=== PATIENT | female | born 1960 | race Caucasian/White ===

== ENCOUNTER 2019-04-24 14:23 | Inpatient (IN) | payer OTHER ==
[2019-04-24 15:39] LABS: #Basophils 0.1 thou/uL (0.0-0.2); #Eosinphils 0.2 thou/uL (0.0-0.7); #Lymphocytes 2.9 thou/uL (1.20-3.40); #Monocytes 0.6 thou/uL (0.11-0.59); #Neutrophils 7.1 thou/uL (1.40-6.50); %Basophils 0.7 % (0.0-1.0); %Eosinophils 1.7 % (0.0-10.0); %Lymphocytes 26.9 % (21.0-51.0); %Monocytes 5.2 % (0.0-10.0); %Neutrophils 65.4 % (42.0-75.0); Hemoglobin 15.8 g/dL (12.0-16.0); Mean Corpuscular HGB CONC 33.8 g/dL (32.0-36.0); Mean Corpuscular Hemoglobin 31.7 pg (27.0-31.0); Mean Corpuscular Volume 93.6 fL (78.0-98.0); Mean Platelet Volume 7.4 fL (7.4-10.4); Platelet Count 251 thou/uL (130-400); RBC Distribution Width 11.2 % (11.5-14.5); Red Blood Cell (RBC) Count 4.99 mill/uL (4.20-5.40); White Blood Cell (WBC) Count 10.9 thou/uL (4.8-10.8)
[2019-04-24 16:01] LABS: ALT (SGPT) 23 U/L (8-55); AST (SGOT) 15 U/L (5-34); Albumin 4.4 g/dL (3.5-5.0); Alkaline Phosphatase 81 U/L (40-150); Anion Gap 11 mmol/L (10-20); BUN (Urea Nitrogen) 15 mg/dL (9.8-20.1); Bilirubin, Total 0.4 mg/dL (0.2-1.2); Calc. Creatinine Clearance 0 mL/min (70-130); Calcium 9.4 mg/dL (7.8-10.44); Carbon Dioxide 27 mmol/L (22-29); Chloride 101 mmol/L (98-107); Estimated GFR-MDRD 56; Globulin 2.6 g/dL (2.4-3.5); Glucose 305 mg/dL (70-105); Potassium 4.2 mmol/L (3.5-5.1); Sodium 135 mmol/L (136-145)
[2019-04-24] MEDS ORDERED: ISOVUE-370 76%-LOCM 1 ML ONE (16:17)
[2019-04-24] MEDS ORDERED: diphenhydrAMINE 50 MG/ML VIAL ONE (18:40)
[2019-04-24] MEDS ORDERED: methylPREDNISolone Sod Succ/PF 125 MG/2 ML VIAL ONE (18:40)
[2019-04-24] MEDS ORDERED: Metoclopramide HCl 10 MG/2 ML VIAL ONE (18:40)
--- NOTE | 2019-04-24 19:57 | CT ---
CTA Angio Head W WO Con CT brain without contrast History: Reason For Study Comparison: None. Findings: Noncontrast evaluation of the brain demonstrates hypodensity right SAP HANA DEVELOPER territory hypodensit y appears subacute-chronic. No acute hemorrhage. Calvarium is intact. Large left maxillary sinus mucosal retention cyst. The intradural right vertebral artery is dominant. Basilar artery is patent. Left P1 segment is atret ic. Very subtle focal occlusion right P2 segments due to thrombus for length of 3 mm. The left middle cerebral artery is patent as well as the anterior cerebral arteries. Focal low-grade narrowing right M1 segment, 20-30%. Impression: 1. Late subacute-chronic right SAP HANA DEVELOPER territory infarction. 2. Focal 3 mm thrombosis right P2 segment with adequate peripheral vascular flow. 3. Low-grade 20-30% narrowing right M1 segment. Code CR: Dr. Yanelis tabares
[2019-04-24] MEDS ORDERED: Aspirin Chewable 81 MG TAB ONE (19:59)
[2019-04-24 22:49] VITALS: BMI 32.1
[2019-04-24] MEDS ORDERED: Morphine 2 MG/ML SYRINGE IVP SCH (23:15)
[2019-04-25] MEDS: Morphine 2 MG/ML SYRINGE SLOW IVP PRN ×2 (03:40→08:22)
[2019-04-25] MEDS ORDERED: Dextrose 50% Abboject 50 ML SYRINGE IVP PRN (06:06)
[2019-04-25] MEDS ORDERED: Dextrose 5% in Water 1,000 ML IV PRN ×2 (06:06→09:19)
[2019-04-25] MEDS: Insulin Regular 300 UNITS/3 ML VIAL SC PRN ×2 (06:37→12:22)
[2019-04-25] MEDS ORDERED: Ondansetron ODT 4 MG TAB PO PRN (09:19)
[2019-04-25] MEDS ORDERED: Acetaminophen 325 MG TAB PO PRN (09:19)
[2019-04-25] MEDS ORDERED: Dextrose 50% Abboject 50 ML SYRINGE SLOW IVP PRN (09:19)
[2019-04-25] MEDS ORDERED: Ketorolac Tromethamine 30 MG/ML VIAL IVP SCH (09:30)
[2019-04-25] MEDS ORDERED: Aspirin 325 mg Enteric Coated Tablet PO SCH (10:00)
--- NOTE | 2019-04-25 10:41 | HP ---
PRIMARY CARE PHYSICIAN: out of town physician. CHIEF COMPLAINT: Persistent right-sided headache and visual changes. HISTORY OF PRESENT ILLNESS: A 58-year-old female with known history of diabetes, who came in due to persistent headache associated with visual changes. The patient reportedly developed severe right frontotemporal headache about 2 weeks ago, for which she has been taking NSAIDs for relief. A week after onset of headaches, the patient had an episode of acute onset of left-sided numbness, which soon resolved but has happened intermittently for 3 more times. About the same time, also the patient started having visual changes, which she describes as seeing kaleidoscopes with some flashes of light. The patient had contacted PCP's office, but could not see the PCP a day prior to presentation. She was initially treated for possible migraine and was asked to take her antihypertensives. Due to persistent of symptoms, she was finally seen by PCP on April 23 and prescription of was given while arrangement for MRI was made for April 26. However, due to persistent of symptoms with worsening visual changes, the patient presented to the emergency room, where she was noticed to have a right posterior circulation artery infarct. The patient continues to have constricted visual field as well as flashes of light and some visual hallucinations as well as left facial numbness. There was no associated limb weakness or facial droop. The patient also denied chest pain, palpitations, nausea, vomiting, abdominal pain, dysuria, hematuria, or leg swelling. Dull light temporal headache persists, which she rates as 8/10. PAST MEDICAL HISTORY: 1. Type 2 diabetes. 2. Hypothyroidism. 3. Anxiety. 4. Attention deficit hyperactivity disorder. 5. Questionable hypertension. 6. Obesity. PAST SURGICAL HISTORY: 1. Cholecystectomy. 2. Sinus surgery. 3. Tubal ligation. FAMILY HISTORY: Significant for hypertension and hyperlipidemia in mother, and COPD, coronary artery disease, and peripheral artery disease in father. SOCIAL HISTORY: The patient lives with spouse and family. Occasionally takes alcohol, but denied smoking or recreational drug use. The patient wants to be full code, and spouse is the surrogate decision maker. 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 Works with [employer]. ALLERGIES: NO KNOWN DRUG ALLERGIES REPORTED. HOME MEDICATIONS: The patient is on the following, but the doses and frequency could not be ascertained at this time. 1. Metformin. 2. Levothyroxine. 3. Citalopram. 4. Adderall. 5. Insulin 75/25, 52 units in the morning and 52 units in the evening. 6. An unknown antihypertensive. 7. NSAIDs. REVIEW OF SYSTEMS: A 12-point review of system performed was negative other than pertinent positives and negatives included in the history of present illness. PHYSICAL EXAMINATION: VITAL SIGNS: Temperature 98.2, pulse 90, respiratory rate 18, SpO2 of 94 on room air, blood pressure is 166/89. GENERAL: Middle-aged female, in [id number] painful distress. Afebrile. Anicteric. Acyanotic. HEENT: Normocephalic and atraumatic. Pupils are equal and reacting to light. Oral mucosa is moist. NECK: Supple, nontender, with full range of motion. No masses or lymphadenopathy appreciated. CARDIOVASCULAR: Regular rhythm and rate with normal heart sounds 1 and 2. 3/6 systolic murmur is noted. RESPIRATORY: Good air entry bilaterally with no obvious crackle or rhonchi or use of accessory muscles. GI: Obese, soft, nontender, nondistended with normal bowel sounds. EXTREMITIES: Grossly normal looking, atraumatic with no edema, erythema, or cyanosis. Distal pulses are palpable. NEUROLOGIC: Conscious and alert, oriented x3, with appropriate mental status. Face is symmetrical with no facial droop. Cranial nerves 2 through 12 are grossly intact except visual field changes. Left homonymous hemianopia noted. Power is 5/5 in all extremities. Sensation is grossly symmetrical in both lower limbs and upper limbs as well as trunk. Sensation however is mildly decreased on the left side of face. Tone and reflexes are normal and symmetrical. PSYCHIATRIC: Normal affect with normal behavior and good insight. DIAGNOSTIC DATA: CBC showed WBC count of 10.9, hemoglobin of 15.8, MCV of 93.6, platelets of 251. BMP showed sodium of 135, potassium 4.2, chloride 101, CO2 of 27, anion gap 11, BUN 15, creatinine 1.01, glucose 305, calcium 9.4, total bilirubin 0.4, AST 15, ALT 23, alkaline phosphatase 81, total protein 7.0, albumin 4.4, globulin 2.6. Initial troponin is 0.012. EKG showed normal sinus rhythm with rate of 75. No obvious ischemic changes were noted. CT scan of the brain showed subacute to chronic right FLATBED STITCHER territory infarction. CT angio head with and without contrast showed focal 3 mm thrombosis of the right P2 segment with adequate peripheral vascular flow as well as low grade 20% to 30% narrowing of right M1 segment. Incidentally, large left maxillary sinus mucosal retention cyst was noted. ASSESSMENT: 1. Subacute right FLATBED STITCHER territory infarct. 2. Left homonymous hemianopia. 3. Moderate to severe headache. 4. Heart murmur. 5. Large left maxillary sinus mucosal retention cyst. 6. Hypertension, most likely reactive, related to acute cerebrovascular infarct. 7. Type 2 diabetes mellitus with hyperglycemia. 8. Hypothyroidism. 9. Obesity. PLAN: 1. We will start analgesics with Ketorolac to get adequate headache control. 2. We will allow permissive hypertension. 3. We will start aspirin and statin. 4. DVT prophylaxis with Lovenox will be commenced. 5. Insulin therapy to get adequate blood sugar control will be commenced as well. 6. We will get carotid Doppler as well as echocardiogram of the heart. 7. We will consult Neurology. 8. PT, OT, and Speech consults have been requested. 9. We will continue neuro checks. We will get lipid panel in the morning as well as repeat BMP, given NSAID use. Code status is full code. The patient's spouse is the surrogate decision maker. It is anticipated that the patient will be in hospital for more than two midnights. Job ID: [id number]
[2019-04-25] MEDS: HYDROcodone/Acetaminophen 5/325 mg Tablet PO PRN ×4 (12:22→22:28)
--- NOTE | 2019-04-25 13:17 | CON ---
DATE OF CONSULTATION: 04/25/2019 This consult is performed via telemedicine, registered nurse accompanying the physician is Elda. CHIEF COMPLAINT: Headache. HISTORY OF PRESENT ILLNESS: The patient reports she has had a headache about 2 weeks ago and she has been waiting at home before she sought further medical attention. She developed left face, arm, and leg numbness last Friday, and it is still numb. She thought it was a migraine. She took Excedrin Migraine, which did not help. She then took Advil. On Friday, she received rizatriptan prescribed by her family doctor and he told her that if her symptoms do not resolve to come back to the hospital. The patient developed vision problems. She feels her vision is like a kaleidoscope, particularly on the left side. She worsened since and then, her vision symptoms changed. She is having strobing and flashes in her vision on the left side. She has problems walking. PREVIOUS MEDICAL HISTORY: She had one other episode of migraine 30 years ago, which lasted for 2 days after childbirth and this was following an epidural steroid injection for procedure for childbirth. Her previous medical history is also significant for diabetes and she is monitoring her blood sugars regularly and she has hypothyroidism, anxiety, attention deficit disorder, and obesity. PAST SURGICAL HISTORY: Cholecystectomy, sinus surgery, and tubal ligation. FAMILY HISTORY: Her mother has hypercholesterolemia and hypertension. She is 78. Father at 79 from COPD. Her son is 30, he is healthy and no strokes in the family. SOCIAL HISTORY: She lives with her family. She drinks alcohol maybe once a week and she does not smoke. 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 She does have a high stress job, but she is generally not anxious or stressed in life. MEDICATIONS: At home; 1. Metformin. 2. Levothyroxine. 3. Citalopram. 4. Adderall. 5. Insulin. 6. NSAID. ALLERGIES: NO KNOWN DRUG ALLERGIES. REVIEW OF SYSTEMS: PULMONARY: Negative for shortness of breath and cough. GI: Negative for diarrhea, vomiting, and nausea. CARDIAC: Negative for chest pain. NEUROLOGIC: Positive for headache, numbness, and vision symptoms. ENDOCRINE: Positive for thyroid dysfunction. DERMATOLOGIC: Negative for any rash. OPHTHALMOLOGIC: Positive for vision symptoms. LABORATORY WORKUP: White count 10.9, hemoglobin 15.8, hematocrit 46.7, and platelets 251. Chemistry; sodium 135, potassium 4.2, chloride 101, bicarb 27, BUN 15, creatinine 1.01, and glucose 305. Trend in her glucose has been hyperglycemic throughout this visit and her CT of the head and CT of the [place] with angiogram was reported she has late subacute chronic right RESPIRATORY MANAGER territory infarction and focal 3 mm thrombosis in the right P2 segment and low-grade 20% to 30% narrowing of the right M1 segment. PHYSICAL EXAMINATION: VITAL SIGNS: Blood pressure was 166/89, pulse 90, temperature 98.2, and O2 saturations 94. GENERAL APPEARANCE: Well-built, well-nourished lady. CHEST: Clear vesicular breathing. CARDIOVASCULAR: S1 and S2 heard. No murmurs. ABDOMEN: Soft. NEUROLOGIC: Higher intellectual functions, normal orientation to time, place, and person. Cranial nerves 2 through 12, normal visual howard on the right side. She had deficit in the left inferior quadrant in the left eye only in the two segments and normal sensation of face bilaterally. No facial asymmetry. Normal hearing bilaterally. Tongue midline. No atrophy noted. Motor, bulk normal. Tone normal. Strength 5/5 in both upper and lower extremities. Muscle groups tested are iliopsoas, hamstrings, quadriceps, ankle dorsiflexion, plantar flexion, deltoid, biceps, triceps, wrist extension and flexion, finger extension and flexion bilaterally. Deep tendon reflexes 2+ throughout. Sensory normal to touch bilaterally except for left arm and leg and cerebellar, normal [id number] and [id number]-[id number]. IMPRESSION: The patient is a 58-year-old lady with history of sudden onset of headache and visual changes for the last 2 weeks, and she stated at home thinking this is a migraine and has continued to have symptoms. She describes her left eye vision as a kaleidoscope and she is also having some mild deficits with her balance. Her current examination shows visual field cut in the lower quadrant of the left eye in both temporal and nasal sections on confrontation method. Rest of the neurological exam is normal except for numbness. Localization for her stroke would be in the left and right RESPIRATORY MANAGER and the expected evolution of her symptoms of stroke, evolution of her ischemia. RECOMMENDATIONS: I will request an MRI of the brain to establish the diagnosis and if you need any further help, please contact Dr. Vasques, I am off call from tomorrow. Job ID: [id number]
--- NOTE | 2019-04-25 13:49 | MRI ---
EXAM: MRI of the brain without contrast HISTORY: Headache and blurry vision COMPARISON: None TECHNIQUE: Multiplanar multisequence MR images were obtained of the brain without IV contrast. FINDINGS: There is a wedge-shaped area of high FLAIR signal and restricted diffusion in the right parieto-occip ital region. Other scattered foci of high FLAIR signal in the subcortical and periventricular white matter are likely secondary to small vessel ischemic disease. No midline shift or downward herniation. No hydronephrosis. No extra-axial fluid collection or intracranial hemorrhage. The expected flow voids are present. Corpus callosum, pituitary, and craniocervical junction are within normal limits. The calvarium and overlying soft tissues are unremarkable. A mucus retention cyst is seen in the left maxillary sinus. The other paranasal sinuses and mastoid a ir cells are well aerated. IMPRESSION: Acute right posterior cerebral artery infarction
[2019-04-25] MEDS: Ondansetron PF 4 MG/2 ML Vial IVP PRN ×2 (14:45→21:47)
[2019-04-25] MEDS ORDERED: Ketorolac Tromethamine 30 MG/ML VIAL IVP PRN (15:00)
--- NOTE | 2019-04-25 15:05 | ULT ---
BILATERAL CAROTID DUPLEX ULTRASOUND WITH SPECTRAL ANALYSIS AND COLOR FLOW EVALUATION: HISTORY: CVA. FINDINGS: Farmer scale, color flow, Doppler evaluation, and spectral analysis of the bilateral carotid arteries i s performed with 2D imaging. There is a suggestion of mild atherosclerotic plaque involving the left carotid bulb. There is less than 50% maximal stenosis in the bilateral internal carotid arteries based on peak syst olic velocities and ICA/CCA ratios. The peak systolic velocity in the right ICA is 103.1 cm/s with a n ICA/CCA ratio of 0.86. Peak systolic velocity in the left ICA Is 97 cm/s with an ICA/CCA ratio of 0.78. There is an elevated peak systolic velocity in the left internal carotid artery suggesting stenosis. Antegrade flow is demonstrated. Antegrade flow is demonstrated in the vertebral arteries bilaterally. IMPRESSION: No hemodynamically significant stenosis in the bilateral internal carotid arteries. POS: [facility]
[2019-04-25] MEDS: HumaLOG 300 UNITS/3 ML VIAL SC PRN ×2 (18:08→21:25)
[2019-04-25] MEDS ORDERED: Famotidine/PF 20 mg/2ml Vial SLOW IVP SCH (21:00)
[2019-04-25] MEDS: Famotidine 20 MG TAB PO SCH (21:23)
[2019-04-25] MEDS: Atorvastatin Calcium 40 MG TAB PO SCH (21:23)
[2019-04-26] MEDS: HYDROcodone/Acetaminophen 5/325 mg Tablet PO PRN ×6 (02:34→23:29)
[2019-04-26 05:34] LABS: #Basophils 0.1 thou/uL (0.0-0.2); #Eosinphils 0.1 thou/uL (0.0-0.7); #Lymphocytes 3.8 thou/uL (1.20-3.40); #Monocytes 0.5 thou/uL (0.11-0.59); #Neutrophils 7.1 thou/uL (1.40-6.50); %Basophils 0.5 % (0.0-1.0); %Eosinophils 0.6 % (0.0-10.0); %Lymphocytes 32.9 % (21.0-51.0); %Monocytes 4.2 % (0.0-10.0); %Neutrophils 61.8 % (42.0-75.0); Hemoglobin 14.2 g/dL (12.0-16.0); Mean Corpuscular HGB CONC 32.9 g/dL (32.0-36.0); Mean Corpuscular Hemoglobin 30.6 pg (27.0-31.0); Mean Corpuscular Volume 92.9 fL (78.0-98.0); Mean Platelet Volume 7.6 fL (7.4-10.4); Platelet Count 230 thou/uL (130-400); RBC Distribution Width 11.4 % (11.5-14.5); Red Blood Cell (RBC) Count 4.65 mill/uL (4.20-5.40); White Blood Cell (WBC) Count 11.5 thou/uL (4.8-10.8)
[2019-04-26 05:40] LABS: Hemoglobin A1c 10.8 % (4.0-6.0)
[2019-04-26 05:57] LABS: Anion Gap 12 mmol/L (10-20); BUN (Urea Nitrogen) 17 mg/dL (9.8-20.1); Calc. Creatinine Clearance 121 mL/min (70-130); Calcium 9.1 mg/dL (7.8-10.44); Carbon Dioxide 26 mmol/L (22-29); Cardiac Risk 3.4 (Less than 4.5); Chloride 101 mmol/L (98-107); Cholesterol 127 mg/dl (< 200 Desired); Estimated GFR-MDRD 73; Glucose 259 mg/dL (70-105); HDL Cholesterol 37 mg/dL (>60 Neg Risk); LDL Cholesterol, Calculated 64 mg/dL; Potassium 4.3 mmol/L (3.5-5.1); Sodium 135 mmol/L (136-145); Triglycerides 130 mg/dL (Less than 150)
[2019-04-26] MEDS: HumaLOG 300 UNITS/3 ML VIAL SC PRN ×3 (06:38→17:20)
[2019-04-26] MEDS ORDERED: Dextrose 5% in Water 1,000 ML IV PRN (07:38)
[2019-04-26] MEDS ORDERED: Dextrose 50% Abboject 50 ML SYRINGE SLOW IVP PRN (07:38)
[2019-04-26] MEDS ORDERED: HumaLOG 300 UNITS/3 ML VIAL SC PRN (07:38)
[2019-04-26] MEDS ORDERED: Insulin Glargine 30 UNITS in Pre-Filled Syringe 1 EACH SC SCH (09:00)
[2019-04-26] MEDS ORDERED: Insulin Glargine 20 UNITS in Pre-Filled Syringe 1 EACH SC SCH (09:00)
[2019-04-26] MEDS: Losartan 25 MG TAB PO SCH (09:28)
[2019-04-26] MEDS: Aspirin 325 mg Enteric Coated Tablet PO SCH (09:28)
[2019-04-26] MEDS: Enoxaparin Sodium 40 MG/0.4 ML SYRINGE SC SCH (09:28)
[2019-04-26] MEDS: Famotidine 20 MG TAB PO SCH ×2 (09:28→20:31)
--- NOTE | 2019-04-26 14:01 | PDOC.HOSPP ---
- Subjective Encounter Date: 04/26/19 Encounter Time: 10:58 Subjective: 58 y/o female admitted with acute visual changes and headache. CT and MRI showed acute posterior cerebral atery are infarction. Headache hs improved but visual defect persist. No new problem. - Objective Vital Signs & Weight: Vital Signs (12 hours) Temp Pulse Pulse Pulse Resp BP BP 04/26/19 11:58 97.4 F L 73 16 04/26/19 09:48 61 72 146/78 H 184/81 H 04/26/19 09:46 61 72 146/78 H 184/81 H 04/26/19 09:25 97.6 F 64 16 04/26/19 08:00 04/26/19 04:00 97.9 F 92 16 BP Pulse Ox 04/26/19 11:58 128/65 93 L 04/26/19 09:48 04/26/19 09:46 04/26/19 09:25 137/71 98 04/26/19 08:00 98 04/26/19 04:00 146/76 H 98 Weight Weight 220 lb 12.8 oz I&O: 04/25/19 04/26/19 04/27/19 06:59 06:59 06:59 Intake Total 980 Balance 980 Result Diagrams: 04/26/19 05:21 04/26/19 05:21 Additional Labs: Accuchecks 04/26/19 04/26/19 04/25/19 10:58 06:16 20:50 POC Glucose 266 H 279 H 344 H 04/25/19 17:11 POC Glucose 366 H ROS - Medication Medications: Active Medications Generic Name Dose Route Start Last Admin Trade Name Freq PRN Reason Stop Dose Admin Hydrocodone Bitart/Acetaminophen 1 tab 04/25/19 09:19 04/26/19 02:34 [place] 5/325 PO 1 tab Q4H PRN Administration Moderate Pain (4-6) Hydrocodone Bitart/Acetaminophen 2 tab 04/25/19 14:27 04/26/19 10:58 [place] 5/325 PO 2 tab Q4H PRN Administration Severe Pain (7-10) Aspirin 325 mg 04/26/19 09:00 04/26/19 09:28 Ecotrin PO 325 mg DAILY DELTA Administration Atorvastatin Calcium 40 mg 04/25/19 21:00 04/25/19 21:23 Lipitor PO 40 mg HS DELTA Administration Enoxaparin Sodium 40 mg 04/26/19 09:00 04/26/19 09:28 Lovenox SC 40 mg 0900 DELTA Administration Famotidine 20 mg 04/25/19 21:00 04/26/19 09:28 Pepcid PO 20 mg BID DELTA Administration Insulin Glargine 30 units/ 0.3 mls @ 0.3 mls/hr 04/26/19 09:00 04/26/19 09:27 Miscellaneous Medication SC 0.3 mls QAM DELTA Administration Losartan Potassium 50 mg 04/26/19 09:00 04/26/19 09:28 Cozaar PO 50 mg DAILY DELTA Administration Ondansetron HCl 4 mg 04/25/19 09:19 04/25/19 21:47 Zofran IVP 4 mg Q6H PRN Administration Nausea/Vomiting Sodium Chloride 10 ml 04/25/19 09:19 04/25/19 21:23 Flush - Normal Saline IVF 10 ml PRN PRN Administration Saline Flush - Exam awake alert Eye: PERRL, anicteric sclera Eye - other findings: left homonymous inferior quadrantopia. 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 Continue sliding scale insulin. Will restart metformin tomorrow Continue ASA and statin. Awaitin Neurology re evaluattion. Continue PT/OT. Consult case ,mgt for rehab placement in line with PT recommendadtion.
[2019-04-26] MEDS ORDERED: Insulin Glargine 10 UNITS in Pre-Filled Syringe SC SCH (14:15)
[2019-04-26] MEDS: Atorvastatin Calcium 40 MG TAB PO SCH (20:31)
[2019-04-27] MEDS: HYDROcodone/Acetaminophen 5/325 mg Tablet PO PRN ×2 (03:34→07:48)
[2019-04-27] MEDS: HumaLOG 300 UNITS/3 ML VIAL SC PRN (07:10)
[2019-04-27 08:07] VITALS: BP 148/77; TEMP 97.8
[2019-04-27] MEDS ORDERED: Insulin Glargine 40 UNITS in Pre-Filled Syringe SC SCH (09:00)
[2019-04-27] MEDS ORDERED: Insulin Glargine 50 UNITS in Pre-Filled Syringe 1 EACH SC SCH (09:00)
[2019-04-27] MEDS: Enoxaparin Sodium 40 MG/0.4 ML SYRINGE SC SCH (09:35)
[2019-04-27] MEDS: Famotidine 20 MG TAB PO SCH (09:36)
[2019-04-27] MEDS: Aspirin 325 mg Enteric Coated Tablet PO SCH (09:36)
[2019-04-27] MEDS: Losartan 25 MG TAB PO SCH (09:37)
--- NOTE | 2019-04-27 18:30 | DIS ---
DATE OF ADMISSION: 04/24/2019 DATE OF DISCHARGE: 04/27/2019 PRIMARY CARE PHYSICIAN: Out of town physician. DISCHARGE DIAGNOSES: 1. Acute ischemic right posterior cerebral artery stroke. 2. Homonymous bilateral field defects of the left side. 3. Uncontrolled diabetes mellitus with hemoglobin A1c of 11.3. 4. Hypertension. 5. Dyslipidemia. 6. Gait instability. 7. Obesity. 8. Pseudohyponatremia due to hyperglycemia CONSULTS: Neurology. HOSPITAL COURSE: A 58-year-old female with known history of hypertension and diabetes, admitted with acute visual changes and persistent headache. CT scan of the brain performed in the emergency room showed acute posterior cerebral artery area infarct. This was further confirmed with MRI of the brain. Neurology consult was obtained and physical and occupational therapy as well as rehabilitation was recommended given gait instability. However, the patient declined acute rehab, preferring to go home. She however was able to ambulate, but due to visual field deficit she tends to stumble a little bit. She was also found to have uncontrolled diabetes with hemoglobin A1c of 10.8 hence insulin therapy was adjusted appropriately with improvement in diabetic control. PHYSICAL EXAMINATION: VITAL SIGNS: Temperature 97.8, pulse 57, respiratory rate 18, SpO2 of 99% on room air. Blood pressure is 148/77. GENERAL: Middle-aged female, in no obvious distress. Afebrile. Anicteric. Acyanotic. HEENT: Normocephalic, atraumatic. Pupils are reacting to light. CARDIOVASCULAR: Regular rhythm and rate with normal heart sounds one and two. Systolic murmur is noted. RESPIRATORY: Good air entry bilaterally with no obvious crackle or rhonchi or use of accessory muscles. GI: Obese, soft, nontender, nondistended with normal bowel sounds. EXTREMITIES: Grossly normal looking atraumatic with no edema or erythema. NEUROLOGIC: Cranial nerves 2 through 12 are grossly intact except visual field loss. The patient has left homonymous inferior quadrantanopia. Cranial nerve; power is 5/5 in all limbs. The patient is ambulant. DISCHARGE CONDITION: Stable. DISCHARGE DISPOSITION: Home. FOLLOWUP: 1. Follow up with PCP in 1 week. 2. Follow up with house superintendent of her choice in 1 to 2 weeks. 3. Follow up with outpatient PT and OT. DISCHARGE MEDICATIONS: 1. Citalopram 20 mg p.o. daily. 2. Losartan 100 mg p.o. daily. 3. Metformin 1000 mg p.o. b.i.d. 4. Acetaminophen 650 mg p.o. q.4 p.r.n. for pain. 5. Aspirin 325 mg p.o. daily. 6. Lipitor 40 mg p.o. daily at bedtime. 7. Insulin 50 units subcutaneously daily. 8. Insulin lispro 0 to 13 units subcutaneously with meal for hyperglycemia according to providing sliding scale. 9. Tramadol 50 to 100 mg p.o. q.6 p.r.n. for headache. TIME SPENT: This discharge took more than 35 minutes. Job ID: [id number] MTDD
--- NOTE | 2019-04-28 10:23 | PQF ---
[employer] Crystal Reports NATTY Andino CHRIS NICKERSON [id number] [id number] CLINICAL DOCUMENTATION CLARIFICATION FORM: POST DISCHARGE Addendum to original discharge summary date: ____ Late entry note date: __ DATE: 04/28/2019 ATTN: CHRIS NICKERSON Please exercise your independent, professional judgment in responding to the clarification form. Clinical indicators are provided on the bottom of this form for your review Please check appropriate box(s): [ ] Hyponatremia please specify etiology, if known [ ] Hyponatremia due to SIADH (Syndrome of Inappropriate Secretion of Antidiuretic Hormone) [ X ] Other diagnosis Pseudohyponatremia due to hyperglycemia [ ] Unable to determine CLINICAL INDICATORS - SIGNS / SYMPTOMS / LABS Headache with visual changes - Documented in H&P on 04/24/19 by CHRIS NICKERSON left side numbness - Documented in H&P on 04/24/19 by CHRIS NICKERSON Sodium of 135 - Documented in H&P on 04/24/19 by CHRIS NICKERSON RISK FACTORS DM - documented in Discharge summary on 04/27/19 by CHRIS NICKERSON Acute ischemic cerebral artery stroke - documented in Discharge summary on 04/27 by CHRIS NICKERSON TREATMENTS: Sodium Chloride 0.9% 10 ml IVF - Documented in Medication list (This form is maintained as a part of the permanent medical record) 2014 [employer]. All Rights Reserved [email or web address] [not provided] MTDD
--- NOTE | 2019-05-01 12:46 | EKG ---
Test Reason : Blood Pressure : / mmHG Vent. Rate : 075 BPM Atrial Rate : 075 BPM P-R Int : 190 ms QRS Dur : 092 ms QT Int : 422 ms P-R-T Axes : 065 013 068 degrees QTc Int : 471 ms Normal sinus rhythm Incomplete right bundle branch block Borderline ECG Confirmed by SAMI CLARK, YURI ([id number]), writer editor EZIO CARDOZO ([id number]) on 05/01/2019 12:45:57 PM Referred By: Confirmed By:YURI GALLARDO MD
== END 2019-04-27 10:55 | disposition home or self-care (01) | DRG 66 ==
LOC: ERS 14:23 → 2SE 20:15
PROVIDERS: ADMIT Hospitalist; ATTEND Hospitalist
DX: I63.531 Cerebral infarction due to unspecified occlusion or stenosis of right posterior cerebral artery (principal); E03.9 Hypothyroidism, unspecified; F41.9 Anxiety disorder, unspecified; I10 Essential (primary) hypertension; H53.462 Homonymous bilateral field defects, left side; E78.5 Hyperlipidemia, unspecified; E11.65 Type 2 diabetes mellitus with hyperglycemia; G43.909 Migraine, unspecified, not intractable, without status migrainosus; R26.81 Unsteadiness on feet; R20.0 Anesthesia of skin; E66.9 Obesity, unspecified; F90.9 Attention-deficit hyperactivity disorder, unspecified type; Z90.49 Acquired absence of other specified parts of digestive tract; Z98.51 Tubal ligation status; Z79.84 Long term (current) use of oral hypoglycemic drugs; Z79.4 Long term (current) use of insulin; Z68.32 Body mass index [BMI] 32.0-32.9, adult; Z79.899 Other long term (current) drug therapy
CPT/HCPCS: 36415; 36416; 70496; 70551; 80048; 80053; 80061; 83036; 84484; 85025; 93005; 93306; 93880; 96365; 96375; J1200; J1650; J1815; J1885; J2270; J2405; J2765; J2930; Q0162; Q9966

== ENCOUNTER 2020-08-08 14:58 | Inpatient (IN) | payer OTHER, SELFPAY ==
[~2020-08-08 14:58] MED LIST: Iopamidol-370 76% 500 ML 1 ML ONE; Magnevist 469MG/ML 20 ML VIAL ONE
[2020-08-08 15:44] LABS: #Basophils 0.1 thou/uL (0.0-0.2); #Eosinphils 0.1 thou/uL (0.0-0.7); #Lymphocytes 1.9 thou/uL (1.20-3.40); #Monocytes 0.5 thou/uL (0.11-0.59); #Neutrophils 7.5 thou/uL (1.40-6.50); %Basophils 0.8 % (0.0-1.0); %Eosinophils 1.4 % (0.0-10.0); %Monocytes 4.7 % (0.0-10.0); %Neutrophils 74.2 % (42.0-75.0); Hemoglobin 15.5 g/dL (12.0-16.0); Mean Corpuscular HGB CONC 34.9 g/dL (32.0-36.0); Mean Corpuscular Hemoglobin 32.4 pg (27.0-31.0); Mean Corpuscular Volume 92.7 fL (78.0-98.0); Platelet Count 234 thou/uL (130-400); RBC Distribution Width 11.6 % (11.5-14.5); Red Blood Cell (RBC) Count 4.79 mill/uL (4.20-5.40); White Blood Cell (WBC) Count 10.2 thou/uL (4.8-10.8)
[2020-08-08 15:50] LABS: PTT 26.8 sec (22.9-36.1); Prothrombin Time 12.8 sec (12.0-14.7)
[2020-08-08 16:09] LABS: ALT (SGPT) 30 U/L (8-55); AST (SGOT) 36 U/L (5-34); Albumin 4.3 g/dL (3.5-5.0); Alkaline Phosphatase 63 U/L (40-110); Anion Gap 14 mmol/L (10-20); BUN (Urea Nitrogen) 13 mg/dL (9.8-20.1); Bilirubin, Total 0.5 mg/dL (0.2-1.2); Calc. Creatinine Clearance 0 mL/min (70-130); Calcium 9.6 mg/dL (7.8-10.44); Carbon Dioxide 26 mmol/L (22-29); Chloride 101 mmol/L (98-107); Estimated GFR-MDRD 78; Globulin 2.9 g/dL (2.4-3.5); Glucose 285 mg/dL (70-105); Potassium 4.2 mmol/L (3.5-5.1); Protein, Total 7.2 g/dL (6.0-8.3); Sodium 137 mmol/L (136-145)
--- NOTE | 2020-08-08 16:16 | RAD ---
ONE VIEW CHEST: 08/08/20 HISTORY: Dizziness, headache, nausea. Altered mental status. COMPARISON: None. FINDINGS: Cardiac silhouette and pulmonary vasculature are within normal limits. Lungs are clear. Osseous struc tures have a normal appearance. IMPRESSION: No acute cardiopulmonary process. POS: [facility]
[2020-08-08] MEDS ORDERED: Aspirin Chewable 81 MG TAB ONE (16:44)
--- NOTE | 2020-08-08 17:14 | CT ---
CTA HEAD WITH AND WITHOUT CONTRAST CTA NECK WITH CONTRAST: 08/08/20 Axial tomograms obtained through the head pre and post IV contrast with post contrast images through the head and neck following angio protocol with multiplanar reconstructions and 3D postprocessing. INDICATION: Dizziness. History of prior CVA. CT HEAD WITHOUT CONTRAST: Encephalomalacia in the right occipital lobe consistent with previous right posterior cerebral artery distribution infarct which was described on CT 04/24/19 and MRI of brain 04/25/19. On today's noncontrast CT there is a focal area of low attenuation in the left centrum semiovale cons istent with a focal lacunar infarct in the deep white matter. Also focal low attenuation in the deep white matter adjacent the anterior horn on the right consistent with ischemic change. Low attenuation seen in the parasagittal region superiorly involving the superior frontal gyrus. This could represent subacute infarct in the right anterior cerebral artery distribution. Recommend MRI f or confirmation. No hemorrhage. IMPRESSION: 1. Low attenuation at the vertex of right frontal lobe parasagittal region concerning for infarct in the right anterior cerebral artery distribution possibly subacute. 2. Chronic appearing ischemic changes in the white matter near the right frontal horn and left centru m semiovale. 3. 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 CTA HEAD: The intracranial internal carotid arteries are patent. Cavernous ICAs are patent. Middle cerebral arteries are patent and symmetric. There is evidence of occlusion of the right anterior cerebral artery A2 segment. Basilar artery is patent. Posterior cerebral arteries are patent and symmetric. There is an atretic P 1 segment on the left which is stable. There is a communication on the left which is patent. IMPRESSION: Evidence of occlusion of the A2 segment of the right anterior cerebral artery. This is significant gi jase the probable acute/subacute right AC infarct. CTA NECK: Arch vessels unremarkable. Common carotid arteries unremarkable. Carotid bulbs and extracranial inter nal carotid arteries are patent and symmetric. Vertebral arteries are patent and symmetric. Left vertebral terminates in PICA. No soft tissue abnormality. IMPRESSION: Unremarkable CTA neck. Findings relayed to Dr. English. Code CR POS: [id number]
[2020-08-08] MEDS ORDERED: Senokot S 8.6-50 MG TAB PO PRN (17:18)
[2020-08-08] MEDS ORDERED: HumaLOG 300 UNITS/3 ML VIAL SC PRN (17:20)
[2020-08-08] MEDS ORDERED: Insulin Regular 300 UNITS/3 ML VIAL SC PRN (17:20)
[2020-08-08] MEDS ORDERED: Dextrose 50% Abboject 50 ML SYRINGE SLOW IVP PRN (17:20)
[2020-08-08] MEDS ORDERED: Dextrose 5% in Water 1,000 ML IV PRN (17:20)
[2020-08-08 17:52] LABS: Bilirubin Negative (Negative); Blood, Urine Negative (Negative); Clarity Clear (Clear); Glucose, Urine (Dipstick) >=1000 mg/dL (Negative); Ketone, Urine 10 mg/dL (Negative); Leukocyte Negative Leu/uL (Negative); Nitrite Negative (Negative); Protein, Urine (Dipstick) Negative (Neg-Trace); Urobilinogen Normal mg/dL (Less than 2)
--- NOTE | 2020-08-08 18:09 | MRI ---
MRI BRAIN WITH AND WITHOUT CONTRAST: DATE: 08/08/2020 HISTORY: 59-year-old female with acute CVA. Dizziness. Left-sided weakness. COMPARISON: 04/25/2019 TECHNIQUE: Multiplanar, multisequence MRI of the brain performed pre- and post-IV injection of gadolinium based contrast agent. FINDINGS: There is a new finding of multifocal patchy small T2 and FLAIR hyperintensities along a long strip of right paramedian upper and anterior frontal lobe parenchyma, including superior frontal gyrus. A small lesion involves the right paracentral lobule. All of these have restricted diffusion, represent ing acute or subacute infarctions in the right TAISHA territory. There is enhancement of small blood vessels associated with these infarctions. 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 There is mild hemosiderin staining indicating there was mild previous hemorrhagic conversion. There is laminar necrosis associated with this (T1 shortening). There is a small lacunar infarction involving the left chowdhury radiata and adjacent portion of left ce ntrum semiovale which occurred sometime after the previous MRI of 04/25/2019. No acute hemorrhage, mass effect, midline shift, obstructive hydrocephalus, or extra-axial fluid jaye ection. No abnormal intra-axial enhancement. IMPRESSION: 1) acute or subacute infarctions along long segment of right anterior cerebral artery territory. 2) moderately large old right occipital posterior cerebral artery territory infarction. 3) left cerebral deep white matter lacunar infarction which occurred sometime after the previous MRI of 04/25/2019. 4) no acute hemorrhage
[2020-08-08] MEDS ORDERED: Clopidogrel Bisulfate 300 MG TAB ONE (18:32)
[2020-08-08] MEDS ORDERED: Atorvastatin Calcium 40 MG TAB PO SCH (21:00)
[2020-08-08] MEDS: Acetaminophen 325 MG TAB PO PRN (21:16)
[2020-08-08] MEDS: Famotidine 20 MG TAB PO SCH (21:16)
[2020-08-08 22:15] VITALS: BMI 31.1
--- NOTE | 2020-08-09 00:45 | HP ---
PRIMARY CARE PHYSICIAN: Bull Woodard. CHIEF COMPLAINT: Dizziness with some nausea and ataxia. HISTORY OF PRESENT ILLNESS: Ms. Lewis is a 59-year-old female, who came to the emergency room today for evaluation of dizziness and ataxia of bilateral lower left leg weakness with some nausea. She was admitted last April 2019 for similar symptoms and at that time, she was diagnosed with an acute ischemic right posterior cerebral artery stroke. 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 She also had a MRI of the brain today while she was in the emergency room, which showed acute or subacute infarctions along the long segment of the right anterior cerebral artery, moderately large old right occipital posterior cerebral artery, left cerebral deep matter lacunar infarction, which occurred sometime after the previous MRI of 04/25/2019. No acute hemorrhage. The patient reports that after her last stroke in last April in 2018, she was worked up in [place], but is not really sure which hospital, so she is going to get that information. They worked her up for any cardiac causes of the previous stroke and she said that they did not find anything definitive. She does have a history of diabetes type 2, hypothyroidism, anxiety, ADHD, possible hypertension, and then the CVA in last April. She is going to be admitted to the stroke unit for further workup. Dr. Mccabe, a neurologist was consulted from the ER and she was taking an aspirin 325 daily and so he had the ER add Plavix. She had been also taking a statin, which we will continue. REVIEW OF SYSTEMS: She denies any fever or chills. She denies any changing issues with her vision. She said that she had some residual deficits from her stroke last April, but nothing new. She denies any chest pain or shortness of breath. She does have some mild nausea. Denied any vomiting, constipation, diarrhea. She reports that her bilateral lower legs were weak and she has fallen twice at home today. She reports that she has good diminished sensation on the left lower leg. All systems are reviewed and negative unless mentioned above or in HPI. PAST MEDICAL HISTORY: Please see HPI. SURGICAL HISTORY: Cholecystectomy, sinus surgery, tubal ligation. PSYCHIATRIC HISTORY: None. SOCIAL HISTORY: Denies any alcohol use. No drug use. No smoking history. Lives at home with her family. ALLERGIES: NONE. CURRENT MEDICATIONS: 1. NovoLog 70/30, 15 units b.i.d. 2. Aspirin 81 mg p.o. once a day. 3. Citalopram 20 mg p.o. once a day. 4. Metformin 1000 mg p.o. b.i.d. 5. Atorvastatin 40 mg p.o. once a day. 6. Losartan 100 mg p.o. once a day. 7. Levothyroxine 125 mcg p.o. daily. 8. Topiramate 50 mg p.o. b.i.d. p.r.n. PHYSICAL EXAMINATION: VITAL SIGNS: Blood pressure 160/97, pulse is 86, respiratory rate is 18, temperature is 98.1, pO2 sats are 96% on room air. CONSTITUTIONAL: She appears nontoxic. She is alert and oriented to person, place and time. HEENT: Head atraumatic and normocephalic. Eyes, eyelids are normal to inspection. Pupils are equally round and reactive to light. Extraocular muscles are intact. ENT, mouth exam is normal. Mucous membranes are moist. NECK: Normal range of motion. Trachea is midline. RESPIRATORY: Chest movement is symmetrical. Chest expansion is equal. CARDIOVASCULAR: Heart sounds are normal. Regular rate and rhythm. ABDOMEN: Nontender. Bowel sounds are heard. BACK: Normal range of motion. No CVA tenderness. UPPER EXTREMITIES: Normal range of motion. Motor strength is normal. Sensation is intact to lower extremity. Inspection is normal. Normal range of motion. She does have some left leg drift and decreased sensation. NEURO: She is oriented to person, place, and time. Speech is normal. She does have a left drift to the left leg with decreased sensation to the left leg. SKIN: Warm, dry, and normal in color. PSYCH: Oriented to person, place, and time. DIAGNOSTIC STUDIES: EKG in the emergency room shows beats per minute 78, normal sinus rhythm, ST segments and T-waves are normal. PLAN AND ASSESSMENT: 1. Cerebrovascular accident on the right anterior cerebral artery. The patient has had a CTA of the neck and head as well as an MRI of the brain while in the emergency room. We will do an echocardiogram. We will ask PT, OT, speech, and Neurology to be consulted. We will decrease her aspirin to 81 mg. We will add Plavix 75 mg p.o. daily. We will continue atorvastatin. We will add fasting lipids, TSH, and A1c in the a.m. Neuro checks q.4. The patient's symptoms had been going on for more than 24 hours and she was not a tPA candidate. 2. History diabetes type 2, before meals and at bedtime Accu-Cheks. We will restart her home medications. Add a sliding scale as needed for coverage. 3. History of hypertension. We will continue her home medications. 4. History of previous cerebrovascular accident. Please see #1. 5. History of hypothyroidism. We will check a TSH in the morning. Restart home medications. 6. Deep venous thrombosis and gastrointestinal prophylaxis started. 7. Case discussed with Dr. Urrutia, who agrees with plan. 8. Hospital course dependent on clinical findings. Job ID: [id number]
[2020-08-09] MEDS: Acetaminophen 325 MG TAB PO PRN (04:28)
[2020-08-09 05:53] LABS: #Eosinphils 0.2 thou/uL (0.0-0.7); #Lymphocytes 2.8 thou/uL (1.20-3.40); #Monocytes 0.6 thou/uL (0.11-0.59); #Neutrophils 3.7 thou/uL (1.40-6.50); %Basophils 0.6 % (0.0-1.0); %Eosinophils 3.2 % (0.0-10.0); %Lymphocytes 37.6 % (21.0-51.0); %Neutrophils 50.6 % (42.0-75.0); Hemoglobin 14.5 g/dL (12.0-16.0); Mean Corpuscular HGB CONC 33.7 g/dL (32.0-36.0); Mean Corpuscular Hemoglobin 31.7 pg (27.0-31.0); Mean Corpuscular Volume 93.9 fL (78.0-98.0); Mean Platelet Volume 7.3 fL (7.4-10.4); Platelet Count 220 thou/uL (130-400); RBC Distribution Width 11.7 % (11.5-14.5); Red Blood Cell (RBC) Count 4.58 mill/uL (4.20-5.40); White Blood Cell (WBC) Count 7.4 thou/uL (4.8-10.8)
[2020-08-09 05:59] LABS: Hemoglobin A1c 10.7 % (4.0-6.0)
[2020-08-09] MEDS ORDERED: Levothyroxine Sodium 125 MCG TAB PO SCH (06:00)
[2020-08-09 06:20] LABS: ALT (SGPT) 22 U/L (8-55); AST (SGOT) 22 U/L (5-34); Alkaline Phosphatase 62 U/L (40-110); Anion Gap 13 mmol/L (10-20); BUN (Urea Nitrogen) 13 mg/dL (9.8-20.1); Bilirubin, Total 0.5 mg/dL (0.2-1.2); Calc. Creatinine Clearance 136 mL/min (70-130); Calcium 9.1 mg/dL (7.8-10.44); Carbon Dioxide 27 mmol/L (22-29); Cardiac Risk 4.3 (Less than 4.5); Chloride 102 mmol/L (98-107); Cholesterol 159 mg/dl (< 200 Desired); Estimated GFR-MDRD 86; Globulin 2.5 g/dL (2.4-3.5); Glucose 177 mg/dL (70-105); HDL Cholesterol 37 mg/dL (>60 Neg Risk); LDL Cholesterol, Calculated 88 mg/dL; Potassium 3.8 mmol/L (3.5-5.1); Protein, Total 6.5 g/dL (6.0-8.3); Sodium 138 mmol/L (136-145); Triglycerides 170 mg/dL (Less than 150)
[2020-08-09] MEDS ORDERED: Aspirin 325 mg Enteric Coated Tablet PO SCH (09:00)
[2020-08-09] MEDS ORDERED: Clopidogrel Bisulfate 75 MG TAB PO SCH (09:00)
[2020-08-09] MEDS ORDERED: Aspirin 81 mg Enteric Coated Tablet PO SCH (09:00)
[2020-08-09] MEDS ORDERED: Topiramate 25 MG TAB PO SCH (09:00)
[2020-08-09] MEDS ORDERED: Losartan 25 MG TAB PO SCH (09:00)
[2020-08-09] MEDS ORDERED: INSULIN GLARGINE SC SCH (09:00)
[2020-08-09] MEDS ORDERED: Citalopram 20 MG TAB PO SCH (09:00)
[2020-08-09] MEDS ORDERED: Enoxaparin Sodium 40 MG/0.4 ML SYRINGE SC SCH (09:00)
[2020-08-09] MEDS ORDERED: PRE FILLED SC SCH (09:00)
[2020-08-09] MEDS ORDERED: FLU VACC QS2020-21(6MOS UP)/PF 60 MCG/0.5 ML SYRINGE IM ONE (09:00)
[2020-08-09 09:06] LABS: SARS-CoV-2 MS2 Positive; SARS-CoV-2 N Gene Negative; SARS-CoV-2 S Gene Negative; SARS-CoV-2 by NAA Not Detected (NotDetected); SARS-CoV-2 orf1ab Negative
--- NOTE | 2020-08-09 09:35 | CT ---
CTA HEAD WITH AND WITHOUT CONTRAST CTA NECK WITH CONTRAST: 08/08/20 Axial tomograms obtained through the head pre and post IV contrast with post contrast images through the head and neck following angio protocol with multiplanar reconstructions and 3D postprocessing. INDICATION: Dizziness. History of prior CVA. CT HEAD WITHOUT CONTRAST: Encephalomalacia in the right occipital lobe consistent with previous right posterior cerebral artery distribution infarct which was described on CT 04/24/19 and MRI of brain 04/25/19. On today's noncontrast CT there is a focal area of low attenuation in the left centrum semiovale cons istent with a focal lacunar infarct in the deep white matter. Also focal low attenuation in the deep white matter adjacent the anterior horn on the right consistent with ischemic change. Low attenuation seen in the parasagittal region superiorly involving the superior frontal gyrus. This could represent subacute infarct in the right anterior cerebral artery distribution. Recommend MRI f or confirmation. No hemorrhage. IMPRESSION: 1. Low attenuation in the vertex right frontal lobe parasagittal region concerning for infarct in the right anterior cerebral artery distribution possibly subacute. 2. Chronic appearing ischemic changes in the white matter near the right frontal horn and left centru m semiovale. 3. 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 CTA HEAD: The intracranial internal carotid arteries are patent. Cavernous ICAs are patent. Middle cerebral arteries are patent and symmetric. There is evidence of occlusion of the right anterior cerebral artery A2 segment. Basilar artery is patent. Posterior cerebral arteries are patent and symmetric. There is an atretic P 1 segment on the left which is stable. There is a communication on the left which is patent. IMPRESSION: Evidence of occlusion of the A2 segment of the right anterior cerebral artery. This is significant gi jase the probable acute/subacute right AC infarct. CTA NECK: Arch vessels unremarkable. Common carotid arteries unremarkable. Carotid bulbs and extracranial inter nal carotid arteries are patent and symmetric. Vertebral arteries are patent and symmetric. Left vertebral terminates in PICA. No soft tissue abnormality. IMPRESSION: Unremarkable CTA neck. Findings relayed to Dr. English. Code CR
[2020-08-09] MEDS: Famotidine 20 MG TAB PO SCH (10:32)
[2020-08-09] MEDS: metFORMIN XR 500 MG TAB PO SCH ×2 (10:33→20:01)
--- NOTE | 2020-08-09 13:33 | CON ---
NEUROLOGY CONSULTATION DATE OF CONSULTATION: 08/09/2020 REASON FOR CONSULTATION: Acute CVA. HISTORY OF PRESENT ILLNESS: Ms. Lewis is a 59-year-old female with history significant for CVA in April 2020, presented with dizziness, nausea, and ataxia. Per the patient, she was admitted last April in 2018 with similar symptoms and at that time she was diagnosed with acute ischemic right posterior cerebral artery stroke. She had a CT and the CT angio of the neck on this visit, which showed concern for infarct in the right anterior cerebral artery territory with chronic appearing ischemic changes in the right frontal horn and from old infarct and the head CTA of the neck was unremarkable. The MRI of the brain in the emergency room showed acute or subacute infarction along the long segment of the right anterior cerebral artery, moderately large, old, right occipital posterior cerebral artery infarct. Per patient, she was worked up in [place] and she also has a neurologist in [place], who follows her. The patient has been compliant with aspirin and statin since April 2019. Since the patient, who has been taking aspirin on a regular basis, Plavix was added. The patient denies any focal weakness, focal paresthesias, headache, chest pain, abdominal pain, recent illness, chest pain, shortness of breath, constipation, double vision associated with this episode. REVIEW OF SYSTEMS: All systems reviewed, which were negative except the pertinent positives and negatives mentioned in the HPI. PAST MEDICAL HISTORY: diabetes, hypothyroidism, anxiety, ADHD, and hypertension. ALLERGIES: NO KNOWN DRUG ALLERGIES. SOCIAL HISTORY: The patient lives at home with her family. Denies smoking, alcohol, or illegal drug use. CURRENT MEDICATIONS: 1. NovoLog 70/30, 15 units b.i.d. 2. Aspirin 81 mg once daily. 3. Citalopram 20 mg once a day. 4. Metformin 1000 mg p.o. b.i.d. 5. Atorvastatin 40 mg p.o. once a day. 6. Losartan 100 mg p.o. once a day. 7. Levothyroxine 125 mcg p.o. daily. 8. Topiramate 50 mg p.o. b.i.d. p.r.n. PHYSICAL EXAMINATION: VITAL SIGNS: Blood pressure 160/90, pulse 86, and respiratory rate 18. CONSTITUTIONAL: Alert and awake female, in no acute distress. CVS: Regular rate and rhythm. CHEST: Clear. ABDOMEN: Soft. NECK: Supple. NEUROLOGIC: Mental status, the patient is alert and oriented to person, place, and time. Speech is clear. Cranial nerves 3 through 12 intact, 2 left homonymous hemianopia. Motor, muscle tone and bulk are normal. Strength 5/5 bilaterally except left leg 4+/5. Cerebellar, left leg drift is seen. Finger-nose testing intact. Sensory, withdraws all 4 extremities to nail bed pressure. Gait deferred due to the patient's safety reasons. DATA REVIEWED: I reviewed the MRI of the brain, which showed right anterior cerebral artery infarct consistent with her symptoms. ASSESSMENT AND PLAN: Ms. Rozina Lewis is a 59-year-old female presented with nausea, vomiting, and dizziness. MRI of the brain reviewed, which was consistent with acute infarction in the right anterior cerebral artery territory. CTA of the head and neck completed. CTA of the neck was nevertheless essentially unremarkable. CTA of the [place] showed evidence of occlusion of the A2 segment of the right internal anterior cerebral artery. This is significant given the probable acute/subacute right TAISHA infarct. Consider Neurosurgery input. Neuro checks every 4 hours. Continue aspirin 81 mg daily and Plavix 75 mg daily for secondary stroke prevention. Continue high-intensity statin for secondary stroke prevention. Strict control of blood glucose. Permissive control of blood pressure at this time. Continue home medications. PT/OT/Speech. Telemetry to rule out arrhythmias. 2D echo to evaluate for left ventricular ejection fraction. Continue medical management per primary team. Plan discussed in detail with the patient, at bedside. and also with the nursing staff. We will continue to follow. Thank you for the consult. Job ID: [id number] MTDD
[2020-08-09 15:41] VITALS: BP 127/76; TEMP 97.9
== END 2020-08-09 20:01 | disposition home or self-care (01) | DRG 66 ==
LOC: ERS 14:58 → 2SE 17:17
PROVIDERS: ADMIT Internal Medicine; ATTEND Internal Medicine
DX: I63.521 Cerebral infarction due to unspecified occlusion or stenosis of right anterior cerebral artery (principal); Z20.828 Contact with and (suspected) exposure to other viral communicable diseases; E11.9 Type 2 diabetes mellitus without complications; I10 Essential (primary) hypertension; F90.9 Attention-deficit hyperactivity disorder, unspecified type; F41.9 Anxiety disorder, unspecified; R27.0 Ataxia, unspecified; E03.9 Hypothyroidism, unspecified; R29.702 NIHSS score 2; G83.14 Monoplegia of lower limb affecting left nondominant side; Z86.73 Personal history of transient ischemic attack (TIA), and cerebral infarction without residual deficits; Z79.899 Other long term (current) drug therapy; Z79.82 Long term (current) use of aspirin; Z79.890 Hormone replacement therapy; Z90.49 Acquired absence of other specified parts of digestive tract; Z98.51 Tubal ligation status; Z79.84 Long term (current) use of oral hypoglycemic drugs; Z28.21 Immunization not carried out because of patient refusal
CPT/HCPCS: 36415; 36416; 70496; 70498; 70553; 71045; 80053; 80061; 81003; 83036; 84443; 84484; 85025; 85610; 85730; 87635; 93005; 93306; 94760; A9579; J1650; J1815; Q9967; U0003

== ENCOUNTER 2020-08-24 12:40 | Observation (INO) | payer OTHER, SELFPAY ==
--- NOTE | 2020-08-24 13:31 | RAD ---
SINGLE VIEW CHEST: Date: 08/24/2020 COMPARISON: 08/08/2020. HISTORY: Fall with weakness. FINDINGS: Single view of the chest shows a normal sized cardiomediastinal silhouette. There is no evidence of c onsolidation, mass, or pleural effusion. The bones are unremarkable. IMPRESSION: No evidence of acute cardiopulmonary disease. POS: EAA
--- NOTE | 2020-08-24 13:38 | CT ---
CT BRAIN WITHOUT CONTRAST: 08/24/20 HISTORY: Fall, weakness. 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 There is a small focal infarction in the left periventricular w sameer matter. The ventricular size is appropriate and the basilar cisterns patent. There is a small ol d infarct in the right TAISHA territory. No evidence of acute infarct, hemorrhage, midline shift, or abnormal extra-axial fluid collections ar e seen. The bony calvarium is intact. The visualized paranasal sinuses and mastoid air cells are well aerated. IMPRESSION: No CT evidence of acute intracranial process. POS: AH
[2020-08-24 13:40] LABS: #Basophils 0.1 thou/uL (0.0-0.2); #Eosinphils 0.2 thou/uL (0.0-0.7); #Lymphocytes 2.2 thou/uL (1.20-3.40); #Monocytes 0.4 thou/uL (0.11-0.59); #Neutrophils 3.4 thou/uL (1.40-6.50); %Basophils 0.9 % (0.0-1.0); %Eosinophils 3.2 % (0.0-10.0); %Lymphocytes 35.3 % (21.0-51.0); %Neutrophils 54.7 % (42.0-75.0); Hemoglobin 15.1 g/dL (12.0-16.0); Mean Corpuscular HGB CONC 34.5 g/dL (32.0-36.0); Mean Corpuscular Hemoglobin 32.5 pg (27.0-31.0); Mean Corpuscular Volume 94.5 fL (78.0-98.0); Mean Platelet Volume 7.4 fL (7.4-10.4); Platelet Count 233 thou/uL (130-400); RBC Distribution Width 11.4 % (11.5-14.5); Red Blood Cell (RBC) Count 4.63 mill/uL (4.20-5.40); White Blood Cell (WBC) Count 6.2 thou/uL (4.8-10.8)
[2020-08-24 13:45] LABS: INR-International Normal Ratio 0.9; PTT 27.9 sec (22.9-36.1); Prothrombin Time 12.4 sec (12.0-14.7)
[2020-08-24 14:04] LABS: ALT (SGPT) 21 U/L (8-55); AST (SGOT) 16 U/L (5-34); Albumin 4.2 g/dL (3.5-5.0); Alkaline Phosphatase 89 U/L (40-110); Anion Gap 14 mmol/L (10-20); BUN (Urea Nitrogen) 13 mg/dL (9.8-20.1); Bilirubin, Total 0.3 mg/dL (0.2-1.2); CK (CPK) 52 U/L (29-168); Calc. Creatinine Clearance 0 mL/min (70-130); Calcium 9.1 mg/dL (7.8-10.44); Carbon Dioxide 26 mmol/L (22-29); Chloride 100 mmol/L (98-107); Globulin 2.6 g/dL (2.4-3.5); Glucose 318 mg/dL (70-105); Potassium 4.3 mmol/L (3.5-5.1); Protein, Total 6.8 g/dL (6.0-8.3); Sodium 136 mmol/L (136-145)
[2020-08-24 15:11] LABS: Bilirubin Negative (Negative); Blood, Urine Negative (Negative); Clarity Clear (Clear); Glucose, Urine (Dipstick) Greater than 1000 mg/dL (Negative); Ketone, Urine Negative (Negative); Leukocyte 25 Leu/uL (Negative); Nitrite Negative (Negative); Protein, Urine (Dipstick) Negative (Neg-Trace); RBC/HPF 0-3 HPF (0-3); Urobilinogen Normal mg/dL (Less than 2); WBC/HPF 0-3 HPF (0-3)
[2020-08-24 15:12] LABS: Bacteria/HPF 1+ HPF (None Seen)
[2020-08-24] MEDS ORDERED: Dextrose 50% Abboject 50 ML SYRINGE SLOW IVP PRN (16:37)
[2020-08-24] MEDS ORDERED: Dextrose 5% in Water 1,000 ML IV PRN (16:37)
[2020-08-24] MEDS ORDERED: Aspirin 81 mg Enteric Coated Tablet PO SCH (17:01)
[2020-08-24] MEDS ORDERED: Clopidogrel Bisulfate 75 MG TAB PO SCH (17:15)
[2020-08-24 17:26] LABS: Troponin I 0.013 ng/mL (< 0.028)
--- NOTE | 2020-08-24 17:33 | PDOC.HHP ---
Hospitalist HPI - History of Present Illness Worsening left-sided weakness History of Present Illness: Patient is a 59-year-old female who initially presented to the hospital with dizziness and ataxia and left lower limb weakness. She underwent a stroke work- up and was discharged August 14. MRI brain indicated acute right posterior cerebellar infarct. Patient did not get any physical therapies due to holidays. Patient states that for the past couple days she has been noticing worsening weakness and had a fall this morning trying to get up however she feels that she slipped under a rug and then could not get herself up. Denies any fevers or chills any nausea vomiting diarrhea. She has been eating well and taking all her medications. Hospitalist ROS - Review of Systems Cardiovascular: denies: chest pain, palpitations, orthopnea, paroxysmal noc. 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 Endocrine: reports: Diabetes, Hyperthyroidism - Past Surgical History Past Surgical History: reports: Cholecystectomy, Tubal Ligation, Other Other Surgical History: Sinus surgery - Family History Family History: reports: no pertinent history - Social History Smoking Status: Never smoker Alcohol: reports: None Drugs: reports: none Living Situation: With Family Activity level: uses cane/walker - Exam Neck: negative: supple, symmetric, no JVD, no thyromegaly, no lymphadenopathy, no carotid bruit, JVD Heart: negative: RRR, no murmur, no gallops, no rubs, normal peripheral pulses, irregular, diminshed peripheral pulses, murmur present, II/IV, III/IV Respiratory: negative: CTAB, no wheezes, no rales, no ronchi, normal chest expansion, no tachypnea, normal percussion, rales, rhonchi, tachypneic, wheezes Gastrointestinal: negative: soft, non-tender, non-distended, normal bowel sounds, no palpable masses, no hepatomegaly, no splenomegaly, no bruit, no guarding, no rigidity, tender to palpation, distended, diminished bowl sounds, voluntary guarding Neurological - other findings: Left-sided weakness rather than right side Hospitalist Results - Labs Result Diagrams: 08/24/20 13:31 08/24/20 13:32 Lab results: WBC 6.2 thou/uL (4.8-10.8) 08/24/20 13:31 Hgb 15.1 g/dL (12.0-16.0) 08/24/20 13:31 Hct 43.7 % (36.0-47.0) 08/24/20 13:31 MCV 94.5 fL (78.0-98.0) 08/24/20 13:31 Plt Count 233 thou/uL (130-400) 08/24/20 13:31 Neutrophils % 54.7 % (42.0-75.0) 08/24/20 13:31 Sodium 136 mmol/L (136-145) 08/24/20 13:32 Potassium 4.3 mmol/L (3.5-5.1) 08/24/20 13:32 Chloride 100 mmol/L (98-107) 08/24/20 13:32 Carbon Dioxide 26 mmol/L (22-29) 08/24/20 13:32 BUN 13 mg/dL (9.8-20.1) 08/24/20 13:32 Creatinine 0.82 mg/dL (0.6-1.1) 08/24/20 13:32 Glucose 318 mg/dL (70-105) H 08/24/20 13:32 Lactic Acid 1.9 mmol/L (0.5-2.2) 08/24/20 13:32 Calcium 9.1 mg/dL (7.8-10.44) 08/24/20 13:32 Total Bilirubin 0.3 mg/dL (0.2-1.2) 08/24/20 13:32 AST 16 U/L (5-34) 08/24/20 13:32 ALT 21 U/L (8-55) 08/24/20 13:32 Alkaline Phosphatase 89 U/L (40-110) 08/24/20 13:32 Creatine Kinase 52 U/L (29-168) 08/24/20 13:32 Troponin I 0.013 ng/mL (< 0.028) 08/24/20 16:38 Serum Total Protein 6.8 g/dL (6.0-8.3) 08/24/20 13:32 Albumin 4.2 g/dL (3.5-5.0) 08/24/20 13:32 Urine Ketones Negative mg/dL (Negative) 08/24/20 14:43 Urine Blood Negative (Negative) 08/24/20 14:43 Urine Nitrite Negative (Negative) 08/24/20 14:43 Ur Leukocyte Esterase 25 Coby/uL (Negative) A 08/24/20 14:43 Urine RBC 0-3 HPF (0-3) 08/24/20 14:43 Urine WBC 0-3 HPF (0-3) 08/24/20 14:43 Ur Squamous Epith Cells 4-6 HPF (0-3) A 08/24/20 14:43 Urine Bacteria 1+ HPF (None Seen) A 08/24/20 14:43 - EKG Interpretation EKG: No acute ST elevation or depression noted. Hospitalist H&P A/P - Problem (1) CVA (cerebral vascular accident) Code(s): I63.9 - CEREBRAL INFARCTION, UNSPECIFIED Status: Acute (2) Dyslipidemia Code(s): E78.5 - HYPERLIPIDEMIA, UNSPECIFIED Status: Acute (3) HTN (hypertension) Code(s): I10 - ESSENTIAL (PRIMARY) HYPERTENSION Status: Acute (4) Uncontrolled diabetes mellitus Code(s): E11.65 - TYPE 2 DIABETES MELLITUS WITH HYPERGLYCEMIA Status: Acute - Plan Plan: Patient states she has been compliant with her medications at home. Urine analysis chest x-ray no acute infectious etiology noted. We will get an MRI brain. She recently had a CTA of the head and neck and also had an echo will not repeat that. We will get neurology to assess her. We will continue the aspirin Plavix and statin. CTA did indicate occlusion to the A2 segment of the right anterior cerebral artery however the common carotids were stable. Hypothyroidism: We will start patient on her home medications will check a TSH. Diabetes: We will check a hemoglobin A1c she states that she did not take her insulin this morning. DVT prophylaxis will be patient SCDs and Lovenox
[2020-08-24] MEDS ORDERED: Aspirin Chewable 81 MG TAB ONE (17:56)
[2020-08-24] MEDS ORDERED: Clopidogrel Bisulfate 75 MG TAB ONE (17:56)
--- NOTE | 2020-08-24 19:37 | MRI ---
BRAIN MRI WITHOUT CONTRAST: 08/24/20 COMPARISON: 08/08/20. HISTORY: Evaluate for acute infarction, fall, dizziness. TECHNIQUE: Multiplanar and multisequence MR imaging of the brain is provided without contrast. FINDINGS: The diffusion weighted imaging demonstrates subtle increased signal intensity on the diffusion weight ed imaging within the posteromedial aspect of the right frontal region, less conspicuous than on the 08/08/20 exam suggesting subacute right anterior cerebral artery territory infarction. There is an ar ea of T2 shine through within the deep white matter of the left frontal region, stable as well. There is encephalomalacia within the posteromedial aspect of the right occipital lobe, evidence of pr ior infarction. The diffusion weighted imaging demonstrates no evidence for acute infarction. There i s no restricted diffusion within the brainstem or the posterior fossa. There is increased T2 and FLAIR signal within the subacute infarction within the right anterior cereb ral artery territory, less conspicuous than on the 08/08/20 exam. Stable T2 and FLAIR hyperintensity is seen in the area of encephalomalacia within the right occipital lobe consistent with a remote righ t HANDBAG STITCHER infarction. Foci of increased T2 and FLAIR signal within the periventricular deep and subcortic al white matter suggests small vessel disease. Arterial flow voids at the axial level of the skull ba se appear grossly unremarkable on the T2 weighted imaging. Regional bone marrow signal intensity appears within normal limits. Minimal blooming artifact is noted within the chronic right HANDBAG STITCHER infarction suggesting remote blood pr oducts. IMPRESSION: 1. Subacute infarction of the right anterior cerebral artery territory, less conspicuous when co mpared to the 08/08/20 exam. 2. Old right occipital infarction within the right HANDBAG STITCHER territory. 3. No evidence for acute infarction or acute intracranial hemorrhage. POS: [facility]
[2020-08-24 19:50] VITALS: BMI 31.7
[2020-08-24 19:59] LABS: Troponin I Less than 0.010 ng/mL (< 0.028)
[2020-08-24] MEDS ORDERED: Atorvastatin Calcium 40 MG TAB PO SCH (21:00)
[2020-08-24] MEDS ORDERED: Insulin Glargine 10 UNITS in Pre-Filled Syringe 1 EACH SC SCH (21:00)
[2020-08-24] MEDS: Topiramate 25 MG TAB PO SCH (21:03)
[2020-08-24] MEDS ORDERED: Ondansetron PF 4 MG/2 ML Vial IVP PRN (23:45)
[2020-08-24] MEDS ORDERED: Acetaminophen 325 MG TAB PO PRN (23:45)
[2020-08-24] MEDS ORDERED: Ondansetron ODT 4 MG TAB SL PRN (23:45)
[2020-08-24] MEDS: HumaLOG 300 UNITS/3 ML VIAL SC PRN (23:46)
[2020-08-25 03:16] LABS: SARS-CoV-2 MS2 Positive; SARS-CoV-2 N Gene Negative; SARS-CoV-2 S Gene Negative; SARS-CoV-2 by NAA Not Detected (NotDetected); SARS-CoV-2 orf1ab Negative
[2020-08-25 05:16] LABS: Hemoglobin A1c 9.9 % (4.0-6.0)
[2020-08-25 05:36] LABS: Cardiac Risk 3.6 (Less than 4.5)
[2020-08-25] MEDS ORDERED: Levothyroxine Sodium 125 MCG TAB PO SCH (06:00)
[2020-08-25] MEDS: HumaLOG 300 UNITS/3 ML VIAL SC PRN (06:22)
[2020-08-25 07:56] VITALS: TEMP 97.9
[2020-08-25] MEDS: Topiramate 25 MG TAB PO SCH (08:15)
[2020-08-25] MEDS ORDERED: Aspirin 81 mg Enteric Coated Tablet PO SCH (09:00)
[2020-08-25] MEDS ORDERED: Enoxaparin Sodium 40 MG/0.4 ML SYRINGE SC SCH (09:00)
[2020-08-25] MEDS ORDERED: Citalopram 20 MG TAB PO SCH (09:00)
[2020-08-25] MEDS ORDERED: Insulin Glargine 10 UNITS in Pre-Filled Syringe 1 EACH SC SCH (09:00)
[2020-08-25] MEDS ORDERED: FLU VACC QS2020-21(6MOS UP)/PF 60 MCG/0.5 ML SYRINGE IM ONE (09:00)
[2020-08-25] MEDS ORDERED: Clopidogrel Bisulfate 75 MG TAB PO SCH ×2 (09:00)
[2020-08-25 12:38] VITALS: BP 129/83
--- NOTE | 2020-08-25 13:13 | CON ---
NEUROLOGY CONSULTATION DATE OF CONSULTATION: 08/25/2020 REASON FOR CONSULTATION: Worsening left-sided weakness. HISTORY OF PRESENT ILLNESS: Ms. Lewis is a 59-year-old female with history significant for prior CVA, hypertension, diabetes, hypothyroidism, presented to the emergency room with ataxia and dizziness and worsening of the left lower limb weakness, so the patient underwent stroke workup and was discharged on August 14. MRI of the brain showed subacute right posterior cerebellar infarct. She was getting physical therapy, but did not get any therapy due to Thanks[place] holidays. Per the patient, she has noticed for the past few days worsening weakness and a fall, so she decided to come to the emergency room for further evaluation. The episode of worsening left-sided weakness occurred for few hours and resolved on its own. The patient has been compliant with her medication. The patient denies nausea, vomiting, headache, chest pain, abdominal pain, recent illness or recent exposure to COVID. REVIEW OF SYSTEMS: All systems reviewed and were negative except the pertinent positives and negatives mentioned in the HPI. PAST MEDICAL HISTORY: Hypertension, CVA, diabetes, hypothyroidism. PAST SURGICAL HISTORY: Cholecystectomy, tubal ligation, sinus surgery. SOCIAL HISTORY: The patient lives with family. Denies smoking, alcohol, or illegal drug use. She uses cane or walker. Allergies: No known drug allergies PHYSICAL EXAMINATION: General: Alert and awake in no acute distress Neck: negative: supple, symmetric, no JVD, no thyromegaly, no lymphadenopathy, no carotid bruit, JVD Heart: negative: RRR, no murmur, no gallops, no rubs, normal peripheral pulses, irregular, diminshed peripheral pulses, murmur present, II/IV, III/IV Respiratory: negative: CTAB, no wheezes, no rales, no ronchi, normal chest expansion, no tachypnea, normal percussion, rales, rhonchi, tachypneic, wheezes Gastrointestinal: negative: soft, non-tender, non-distended, normal bowel sounds, no palpable masses, no hepatomegaly, no splenomegaly, no bruit, no guarding, no rigidity, tender to palpation, distended, diminished bowl sounds, voluntary guarding Neurological - Mental status, the patient is alert and oriented to person, place, and time. Speech is clear. Recent and remote memory, intact. Fund of knowledge, appropriate. Cranial nerves 2 through 12 intact. Cerebellar, finger-nose testing intact. Motor, muscle tone and bulk are normal. Left cerebellar hemiparesis. Sensory, intact. Gait deferred due to the patient's safety reasons. DATA REVIEWED: Labs were reviewed, which were significant for hyperglycemia 318. Lab results: WBC 6.2 thou/uL (4.8-10.8) 08/24/20 13:31 Hgb 15.1 g/dL (12.0-16.0) 08/24/20 13:31 Hct 43.7 % (36.0-47.0) 08/24/20 13:31 MCV 94.5 fL (78.0-98.0) 08/24/20 13:31 Plt Count 233 thou/uL (130-400) 08/24/20 13:31 Neutrophils % 54.7 % (42.0-75.0) 08/24/20 13:31 Sodium 136 mmol/L (136-145) 08/24/20 13:32 Potassium 4.3 mmol/L (3.5-5.1) 08/24/20 13:32 Chloride 100 mmol/L (98-107) 08/24/20 13:32 Carbon Dioxide 26 mmol/L (22-29) 08/24/20 13:32 BUN 13 mg/dL (9.8-20.1) 08/24/20 13:32 Creatinine 0.82 mg/dL (0.6-1.1) 08/24/20 13:32 Glucose 318 mg/dL (70-105) H 08/24/20 13:32 Lactic Acid 1.9 mmol/L (0.5-2.2) 08/24/20 13:32 Calcium 9.1 mg/dL (7.8-10.44) 08/24/20 13:32 Total Bilirubin 0.3 mg/dL (0.2-1.2) 08/24/20 13:32 AST 16 U/L (5-34) 08/24/20 13:32 ALT 21 U/L (8-55) 08/24/20 13:32 Alkaline Phosphatase 89 U/L (40-110) 08/24/20 13:32 Creatine Kinase 52 U/L (29-168) 08/24/20 13:32 Troponin I 0.013 ng/mL (< 0.028) 08/24/20 16:38 Serum Total Protein 6.8 g/dL (6.0-8.3) 08/24/20 13:32 Albumin 4.2 g/dL (3.5-5.0) 08/24/20 13:32 Urine Ketones Negative mg/dL (Negative) 08/24/20 14:43 Urine Blood Negative (Negative) 08/24/20 14:43 Urine Nitrite Negative (Negative) 08/24/20 14:43 Ur Leukocyte Esterase 25 Coby/uL (Negative) A 08/24/20 14:43 Urine RBC 0-3 HPF (0-3) 08/24/20 14:43 Urine WBC 0-3 HPF (0-3) 08/24/20 14:43 Ur Squamous Epith Cells 4-6 HPF (0-3) A 08/24/20 14:43 Urine Bacteria 1+ HPF (None Seen) A 08/24/20 14:43 - EKG Interpretation EKG: No acute ST elevation or depression noted. ASSESSMENT AND PLAN: (1) CVA (cerebral vascular accident) Code(s): I63.9 - CEREBRAL INFARCTION, UNSPECIFIED Status: Acute (2) Dyslipidemia Code(s): E78.5 - HYPERLIPIDEMIA, UNSPECIFIED Status: Acute (3) HTN (hypertension) Code(s): I10 - ESSENTIAL (PRIMARY) HYPERTENSION Status: Acute (4) Uncontrolled diabetes mellitus Code(s): E11.65 - TYPE 2 DIABETES MELLITUS WITH HYPERGLYCEMIA Status: Acute Ms. Rozina Lewis is a 59-year-old female who presented with worsening left-sided weakness. The patient attributes to sleep deprivation, and there is a concern about obstructive sleep apnea. She is already on aspirin, Plavix, and statin. The patient was given an option to switch to Aggrenox, but she declined at this time. CT of the head and neck did not reveal hemodynamically significant stenosis. MRI of the brain did not reveal acute intracranial pathology. Continue strict control of blood pressure and blood glucose. PT/OT/Speech. Patient recently had the echocardiogram and CTA of the head and neck, so we will not repeat those testing. Continue medical management per primary team. We will continue to follow. Thank you for the consult. Job ID: [id number] [facility]
--- NOTE | 2020-08-25 13:27 | PDOC.DS.DS ---
Provider - Provider Date of Admission: 08/24/20 15:48 Date of Discharge: 08/25/20 Admitting Provider: Adrianne Tse MD Consultations: Neurology Primary Care Physician: OUT OF TOWN Course - Hospital Course Hospital Course: Patient is a very pleasant 59-year-old female who recently had a stroke who presents to the hospital for worsening left-sided weakness. Patient had a acute or subacute infarct on the right anterior cerebral artery and moderately large old right occipital posterior cerebral artery infarct. Patient at that time did not want therapy and went home. She denies any nausea vomiting diarrhea fevers or chills. Patient stated that she has been feeling tired and got weak on the left side and came into the hospital for further evaluation. She had a repeat MRI which did not indicate an acute stroke. She was seen by neurology. Patient was offered Aggrenox however patient refused and stated that she will continue her aspirin and Plavix. I have decreased her dose of her blood pressure medication from losartan 100 mg daily to 25 mg given her low blood pressures to begin with. I also recommended the patient to get a sleep apnea study since states that she has been snoring quite a bit and on examination her Mallampati score is a 4. Patient states that she will follow-up outpatient for a sleep apnea study. - Labs Lab Results: 08/24/20 13:31 08/24/20 13:32 Abnormal Lab Results - Last 48 hrs 08/24/20 13:31: MCH 32.5 H, RDW 11.4 L 08/24/20 14:43: Urine Glucose (UA) Greater than 1000 A, Ur Leukocyte Esterase 25 A, Ur Squamous Epith Cells 4-6 A, Urine Bacteria 1+ A 08/25/20 04:40: Triglycerides 211 H 08/25/20 04:40: Hemoglobin A1c 9.9 H - Physical Exam Vitals: Vital Signs (12 hours) Temp Pulse Pulse Pulse Resp BP BP 08/25/20 10:40 86 16 08/25/20 09:15 78 129/83 08/25/20 09:05 78 84 129/83 107/73 08/25/20 07:54 97.9 F 75 14 08/25/20 04:00 97.3 F L 90 16 BP Pulse Ox 08/25/20 10:40 117/65 08/25/20 09:15 08/25/20 09:05 08/25/20 07:54 120/72 97 08/25/20 04:00 105/71 97 Weight Weight 221 lb Physical Exam: The patient was seen and examined on the day of discharge. Problem - Problem (1) CVA (cerebral vascular accident) Code(s): I63.9 - CEREBRAL INFARCTION, UNSPECIFIED Status: Acute (2) Dyslipidemia Code(s): E78.5 - HYPERLIPIDEMIA, UNSPECIFIED Status: Acute (3) HTN (hypertension) Code(s): I10 - ESSENTIAL (PRIMARY) HYPERTENSION Status: Acute (4) Uncontrolled diabetes mellitus Code(s): E11.65 - TYPE 2 DIABETES MELLITUS WITH HYPERGLYCEMIA Status: Acute Plan - Discharge Medications Prescriptions: Losartan [Cozaar] 25 mg PO DAILY #30 tab Home Medications: Medication Instructions Recorded Confirmed Type Citalopram Hydrobromide 20 mg PO DAILY 04/25/19 08/24/20 History [Citalopram HBr] metFORMIN HCl [Metformin HCl ER] 1,000 mg PO BID 04/25/19 08/24/20 History Atorvastatin Calcium [Lipitor] 40 mg PO HS #90 tab 04/27/19 08/24/20 Rx Levothyroxine Sodium [Synthroid] 125 mcg PO DAILY 08/08/20 08/24/20 History Topiramate 50 mg PO BID PRN 08/08/20 08/24/20 History Aspirin [Ecotrin Low Strength] 81 mg PO DAILY #30 tab 08/09/20 08/24/20 Rx Clopidogrel Bisulfate [Plavix] 75 mg PO DAILY 30 Days #30 tab 08/09/20 08/24/20 Rx Losartan [Cozaar] 25 mg PO DAILY #30 tab 08/25/20 Rx Allergies: No Known Drug Allergies Allergy (Verified 08/08/20 22:02) - Discharge Instructions Discharge Instructions:: i have decreased your blood pressure medication losartan from 100mg to 25mg daily. Please check your blood pressure at home. follow up with your primary care doctor. please take your diabetes medication your sugars have been high. you will need to follow up with your primary care doctor about that too. check your blood sugars and write them down. Activity:: Activity as Tolerated Nourishment:: Heart Healthy Diet - Follow up Plan Referrals: Sally Burrows MD [Active] - David Lewis Jr, MD [MD Not on Staff] - 7 Days (call and schedule follow up appt to see Dr Lewis within 7 days. Patient wants to schedule her own appointment. ) Disposition: HOME Quality - Care Measures CORE MEASURES:: Stroke/TIA - Stroke/TIA Did you prescribe antithrombotic therapy?: No Specify reason for no DC antithrombotic therapy: Treatment not indicated Did you prescribe anticoagulant for A Fib/Flutter?: No Specify reason for no DC anticoagulant: Treatment not indicated Did you prescribe a statin medication?: Yes
--- NOTE | 2020-09-02 14:46 | EKG ---
Test Reason : Blood Pressure : / mmHG Vent. Rate : 085 BPM Atrial Rate : 085 BPM P-R Int : 182 ms QRS Dur : 090 ms QT Int : 406 ms P-R-T Axes : 035 007 060 degrees QTc Int : 483 ms Normal sinus rhythm Confirmed by YO LOPEZ DO ([id number]), scientific publications editor AMMY JETER ([id number]) on 09/02/2020 2:46:11 PM Referred By: JOHN Confirmed By:YO LOPEZ DO
== END 2020-08-25 13:42 | disposition home or self-care (01) ==
LOC: ERS 12:40 → 2SE 15:48
PROVIDERS: ADMIT Internal Medicine; ATTEND Internal Medicine
DX: I63.9 Cerebral infarction, unspecified (principal); E11.65 Type 2 diabetes mellitus with hyperglycemia; E78.5 Hyperlipidemia, unspecified; I10 Essential (primary) hypertension; E03.9 Hypothyroidism, unspecified; Z79.84 Long term (current) use of oral hypoglycemic drugs; Z79.899 Other long term (current) drug therapy; Z20.828 Contact with and (suspected) exposure to other viral communicable diseases; W06.XXXA Fall from bed, initial encounter
CPT/HCPCS: 36415; 36416; 70450; 70551; 71045; 80053; 80061; 81003; 81015; 82550; 83036; 83605; 84443; 84484; 85025; 85610; 85730; 87086; 87635; 90471; 90662; 93005; 96372; G0008; G0378; J1650; J1815; U0003